=== PATIENT | male | born 1950 | race Caucasian/White ===

== ENCOUNTER 2020-04-02 18:34 | Inpatient (IN) | payer MEDICARE ==
[~2020-04-02] VITALS: Ht 175.3 cm; Wt 77.1 kg
--- NOTE | 2020-04-02 18:42 | NUR ---
BIB FAMILY FROM HOME, C/O PROGRESSIVELY BEING WEAK AND CONFUSED X 2 WEEKS. TO ER BED 9, HOOKED TO BP CUFF AND POX, CHANGED TO HOSP GOWN, WARM BLANKET PROVIDED, PATIENT AAO x 2, BREATHING EVEN AND UNLABORED, AWAITING MD [place].
--- NOTE | 2020-04-02 18:49 | NUR ---
DR GARG AT BEDSIDE FOR EVAL
--- NOTE | 2020-04-02 19:03 | NUR ---
CIGARETTE SELLER AT BEDSIDE FOR XRAY.
[2020-04-02 19:04] LABS: EOSINOPHILS % (AUTO) 0.5 % (0.0-6.0); MEAN CORPUSCULAR HGB CONC 34 g/dl (31.0-36.0); MEAN CORPUSCULAR VOLUME 102 fL (80-96); MONOCYTES # (AUTO) 1.5 /CMM (0.1-1.30); WHITE BLOOD COUNT (AUTO) 12.3 K/uL (4.3-11.0)
--- NOTE | 2020-04-02 19:08 | NUR ---
BUS VAN DRIVER: MOOKIE (SON) [phone]
--- NOTE | 2020-04-02 19:13 | NUR ---
PICKED UP BY FILER METAL PATTERNS VIA [facility] FOR CT SCAN.
--- NOTE | 2020-04-02 19:17 | NUR ---
RETURNED FROM CT BY Pegg'd.
[2020-04-02] MEDS ORDERED: DOXA8TAB79 PO (19:21)
[2020-04-02] MEDS ORDERED: AMLO10TA7 PO (19:21)
[2020-04-02] MEDS ORDERED: PANT20TA17 PO (19:21)
[2020-04-02] MEDS ORDERED: PRAV40TA3 PO (19:21)
[2020-04-02] MEDS ORDERED: LENV1CAP PO (19:21)
--- NOTE | 2020-04-02 19:29 | NUR ---
CALLED FOR COVID SWAB
--- NOTE | 2020-04-02 19:30 | NUR ---
urine collected and sent to lab.
[2020-04-02 19:33] LABS: BASOPHILS # (AUTO) 0.1 /CMM (0.0-0.2); BASOPHILS % (AUTO) 0.9 % (0.0-2.0); HEMATOCRIT 57 % (39-51); LYMPHOCYTES # (AUTO) 1.4 /CMM (0.8-4.8); LYMPHOCYTES % (AUTO) 11.5 % (20.0-44.0); MONOCYTES % (AUTO) 12.4 % (2.0-12.0); NEUTROPHILS # (AUTO) 9.2 /CMM (1.8-8.9); NEUTROPHILS % (AUTO) 74.7 % (43.0-81.0); PLATELET COUNT (AUTO) 153 /CMM (150-450)
[2020-04-02 19:35] LABS: CARBON DIOXIDE 18 mmol/L (21-32); CHLORIDE 97 mmol/L (98-107); CREATININE 2.4 mg/dL (0.6-1.3); GLUCOSE 126 mg/dL (74-106); POTASSIUM 5.6 mmol/L (3.5-5.1); SODIUM SERUM 130 mmol/L (136-145); UREA NITROGEN, BLOOD 49 mg/dL (7-18)
[2020-04-02 19:36] LABS: SERUM AMMONIA 97 umol/L (11-32)
--- NOTE | 2020-04-02 19:46 | NUR ---
COVID SWAB COLLECTED AND SENT TO THE LAB.
[2020-04-02 19:49] LABS: APPEARANCE,URINE CLEAR (CLEAR); BILIRUBIN,URINE MODERATE (NEGATIVE); BLOOD, URINE NEGATIVE Ery/uL (NEGATIVE); COLOR,URINE ORANGE (YELLOW); KETONES,URINE TRACE (NEGATIVE); LEUKOCYTE ESTERASE ,URINE NEGATIVE (NEGATIVE); NITRITE, URINE POSITIVE (NEGATIVE); PH,URINE 5.5 (5.0-8.0); PROTEIN,URINE TRACE mg/dl (NEGATIVE); UGLUCOSE NEGATIVE (NEGATIVE)
[2020-04-02 19:49] LABS: ALANINE AMINOTRANSFERASE 31 U/L (12-78); ALBUMIN 1.7 g/dL (3.4-5.0); ALKALINE PHOSPHATASE 158 U/L (46-116); ASPARTATE AMINOTRANSFERASE 80 U/L (15-37); BILIRUBIN,DIRECT 3.4 mg/dL (0.0-0.2); BILIRUBIN,TOTAL 4.6 mg/dL (0.2-1.0); LIPASE 103 U/L (73-393); TOTAL PROTEIN, SERUM 4.9 g/dL (6.4-8.2)
[2020-04-02 20:07] LABS: HEMOGLOBIN 19.3 g/dL (13.5-17.5)
[2020-04-02 20:22] LABS: B-TYPE NATRIURETIC PEPTIDE 352 PG/ML (0-125)
[2020-04-02 20:23] LABS: BACTERIA,URINE 1+ /HPF (None Seen); HYALINE CASTS, URINE Few /LPF (None Seen); MUCUS,URINE Few /LPF (None Seen); RBC,URINE 0-2 /HPF (0-2); SQUAMOUS EPITHELIAL CELL,UR 0-2 /HPF (None Seen)
[2020-04-02] MEDS ORDERED: LACTULOSE 10 G/15 ML UDC (PYXIS) PO ONE (20:30)
[2020-04-02] MEDS ORDERED: LACTULOSE 10 G/15 ML UDC (PYXIS) ONE (20:45)
[2020-04-02] MEDS ORDERED: CEFTRIAXONE 1GM BAG (ER ONLY) 50 ML IV ONE (20:45)
[2020-04-02 20:59] LABS: BAND % (MANUAL) 3 % (0.0-5.0); LYMPHOCYTES % (MANUAL) 5 % (16-48); MONOCYTES % (MANUAL) 11 % (0-11.0); NEUTROPHILS % (MANUAL) 81 (42-76)
[2020-04-02] MEDS ORDERED: HYDROCODONE/APAP 5/325MG TABLET PO PRN (21:00)
[2020-04-02] MEDS ORDERED: ACETAMINOPHEN 325 MG TABLET PO PRN (21:00)
[2020-04-02] MEDS ORDERED: MAGNESIUM HYDROXIDE 30 ML UDC PO PRN (21:00)
[2020-04-02] MEDS: LACTULOSE 10 G/15 ML UDC (PYXIS) PO SCH (21:00)
[2020-04-02] MEDS ORDERED: CEFTRIAXONE 1GM BAG (ER ONLY) 1 GM/50 ML PIGGYBACK IV ONE (21:00)
[2020-04-02] MEDS ORDERED: Z GUARD REMEDY 2 OZ OINT TP PRN (21:00)
[2020-04-02] MEDS: CEFTRIAXONE 1 G in IV D5W 50 ML IV SCH (21:00)
--- NOTE | 2020-04-02 21:06 | NUR ---
REC'D NEG COVID RESULTS. AWARE
--- NOTE | 2020-04-02 21:08 | NUR ---
PATIENT VOMITED BROWN-LIKE WITH FOOD. MD NOTIFIED. NO ORDERS.
--- NOTE | 2020-04-02 21:15 | NUR ---
BED ASSIGNMENT 307-1
--- NOTE | 2020-04-02 21:29 | NUR ---
PATIENT IS CLEANED AND CHANGED IN TO A FRESH GOWN AND WITH FRESH CLEAN SHEETS.
--- NOTE | 2020-04-02 21:30 | NUR ---
TRIED CALLING FOR REPORT, STAFF STATES NURSE IS NOT AVAILABLE AT THE MOMENT, STATES WILL CALL BACK IN 15 MINUTES.
--- NOTE | 2020-04-02 21:52 | NUR ---
REPORT GIVEN TO TIERA LEE FOR RAMONITA.
[2020-04-02 22:00] VITALS: BP 100/63
[2020-04-02] MEDS ORDERED: ATORVASTATIN 40 MG TABLET PO SCH (22:00)
--- NOTE | 2020-04-02 22:00 | NUR ---
LIQUID COMPOUNDERFRENCH EDGE OPERATOR NOTES RECEIVED FROM ER THIS 70YO MALE,ALERT,ORIENTED X1-2,CONFUSED BUT CALM,HE KNOWS HIS NAME.DX-ALTERED MENTAL STATUS.APPEARS WEAK,CLAIMED HE AMBULATE WITH CANE,WALKER AT HOME.NO HX OF FALL.NO SKIN ISSUES.SALINE LOCK RIGHT AC INTACT AND PATENT. SR 86 ON TELE MONITOR.FALL PRECAUTION OBSERVED,BED ALARM TRIGGERED,BED ON LOWEST POSITION AND LOCKED.CALL LIGHT IN REACH,NEEDS ANTICIPATED.
--- NOTE | 2020-04-02 22:30 | NUR ---
ENROBING MACHINE FEEDER NOTES DR SANDOVAL AT BEDSIDE
[2020-04-02 22:40] VITALS: BP 100/63
[2020-04-02] MEDS: IV NS 0.9% 1,000 ML IV PRN (22:52)
--- NOTE | 2020-04-02 22:52 | NUR ---
CHUCK SPLITTER NOTES STARTED ON IVF NS AT 75ML/HR RATE ORDERED.
[2020-04-02] MEDS: ENOXAPARIN SODIUM 30 MG/0.3 ML DISP.SYRIN SQ SCH (22:53)
--- NOTE | 2020-04-02 22:53 | NUR ---
QUALITY ENGINEER MEDICAL DEVICE NOTES STARTED ON LOVENOX 30MG,GIVEN SQ ON RIGHT UPPER QUADRANT ORDERED FOR DVT PROPHYLAXIS
--- NOTE | 2020-04-02 22:54 | NUR ---
TECHNICAL MANAGER CHEMICAL PLANT NOTES GIVEN LIPITOR 40MG PO ORDERED.
[2020-04-03] VITALS: BP 96/50
[2020-04-03 00:22] VITALS: BP 96/50
[2020-04-03] MEDS: LACTULOSE 10 G/15 ML UDC (PYXIS) PO SCH ×6 (01:19→22:17)
[2020-04-03] MEDS: ONDANSETRON HCL/PF 4 MG/2 ML VIAL IVP PRN ×4 (01:54→21:36)
--- NOTE | 2020-04-03 01:54 | NUR ---
SHINGLE CUTTER NOTES VOMITED AFTER GIVING LACTULOSE PO,MEDICATED WITH ZOFRAN 4MG IV ORDERED.
[2020-04-03 03:14] LABS: BASOPHILS % (AUTO) 0.4 % (0.0-2.0); EOSINOPHILS % (AUTO) 0.1 % (0.0-6.0); HEMATOCRIT 56 % (39-51); HEMOGLOBIN 18.9 g/dL (13.5-17.5); LYMPHOCYTES # (AUTO) 0.8 /CMM (0.8-4.8); LYMPHOCYTES % (AUTO) 6.8 % (20.0-44.0); MEAN CORPUSCULAR HGB CONC 34 g/dl (31.0-36.0); MEAN CORPUSCULAR VOLUME 100 fL (80-96); MONOCYTES # (AUTO) 1.2 /CMM (0.1-1.30); MONOCYTES % (AUTO) 10.5 % (2.0-12.0); NEUTROPHILS # (AUTO) 9.3 /CMM (1.8-8.9); NEUTROPHILS % (AUTO) 82.2 % (43.0-81.0); PLATELET COUNT (AUTO) 137 /CMM (150-450); WHITE BLOOD COUNT (AUTO) 11.4 K/uL (4.3-11.0)
[2020-04-03 03:53] LABS: ALANINE AMINOTRANSFERASE 27 U/L (12-78); ALBUMIN 1.6 g/dL (3.4-5.0); ALKALINE PHOSPHATASE 152 U/L (46-116); ASPARTATE AMINOTRANSFERASE 70 U/L (15-37); BILIRUBIN,TOTAL 4.4 mg/dL (0.2-1.0); CARBON DIOXIDE 20 mmol/L (21-32); CHLORIDE 98 mmol/L (98-107); CREATININE 2.6 mg/dL (0.6-1.3); GLUCOSE 136 mg/dL (74-106); MAGNESIUM 3.1 mg/dL (1.8-2.4); PHOSPHORUS 5.2 mg/dL (2.5-4.9); POTASSIUM 5.6 mmol/L (3.5-5.1); SODIUM SERUM 131 mmol/L (136-145); TOTAL PROTEIN, SERUM 4.6 g/dL (6.4-8.2); UREA NITROGEN, BLOOD 55 mg/dL (7-18)
[2020-04-03 04:00] VITALS: BP 107/60
[2020-04-03 04:02] LABS: CHOLESTEROL 94 mg/dL (<200); HDL CHOLESTEROL 11 mg/dL (40-60); LDL 77 mg/dL (0-99); THYROID STIMULATING HORMONE 18.726 uIU/mL (0.358-3.74); TRIGLYCERIDES 118 mg/dL (30-150)
--- NOTE | 2020-04-03 05:00 | NUR ---
SHIRRER NOTES OFFERED LACTULOSE 20GM PO THIS TIME,PATIENT REFUSED.HE'S ON BEDSIDE COMMODE DOING #2.
--- NOTE | 2020-04-03 06:31 | NUR ---
MOBILE DESIGNER NOTES ABLE TO GET OUT OF BED WITH ASSIST TO BEDSIDE COMMODE.HAD LARGE BM,STILL A/O X1-2,SPEAK SO SOFT AND NOT TOO LOUD,ABLE TO VERBALIZED NEEDS.NO FALL,NO INJURY,ON CLEAR LIQUID DIET,CALL LIGHT IN REACH,NEEDS ANTICIPATED.WILL ENDORSE TO DAY NURSE FOR RAMONITA.
--- NOTE | 2020-04-03 07:35 | NUR ---
TELE/RN NOTE THE PATIENT IS RECEIVED IN BED. THE PATIENT IS ALERT AND ORIENTED X1. ABLE TO MAKE NEEDS KNOWN VERBALLY. THE PATIENT DENIES PAIN. IN ROOM AIR AND DENIES SOB. RESPIRATION REGULAR AND UNLABORED. DENIES SOB. LAC G 18 PATENT AND SALINE LOCKED DUE TO PATIENT REFUSING IV FLUIDS. PATIENT IS ON CLEAR LIQUID DIET. BED LOW AND LOCKED. SIDE RAILS UP X3. CALL LIGHT WITHIN REACH. WILL CONTINUE TO MONITOR.
[2020-04-03 08:00] VITALS: BP 104/55
[2020-04-03] MEDS: PANTOPRAZOLE 40 MG TABLET.DR PO SCH (09:30)
[2020-04-03] MEDS ORDERED: SODIUM POLYSTYRENE SULFONATE 15 G/60 ML BOTTLE PO ONE (10:30)
[2020-04-03] MEDS ORDERED: FUROSEMIDE 100 MG/10 ML VIAL IV ONE (10:30)
--- NOTE | 2020-04-03 11:13 | NUR ---
TELE/RN NOTE THE PATIENT HAS COMPLIANT OF NAUSEA. ZOFRAN 4 MG IV PUSH GIVEN ORDERED. WILL CONTINUE TO MONITOR.
--- NOTE | 2020-04-03 11:20 | NUR ---
TELE/RN NOTE THE PATIENT COMPLAINS OF NAUSEA. ZOFRAN 4 MG IV PUSH GIVEN. WILL CONTINUE TO MONITOR. Addendum: 04/03/20 at 1534 by DAPHNE VENTURA RN RN NOTE WRONG NOTE
--- NOTE | 2020-04-03 11:21 | NUR ---
TELE/RN NOTE WAITING FOR PHARMACY TO DELIVER KAYEXELATE DYE AT 1030. FOLLOW UP CALL IS MADE. WILL CONTINUE TO FOLLOW UP WITH PHARMACY UNTIL THE MED IS DELIVERED.
--- NOTE | 2020-04-03 11:43 | NUR ---
TELE/RN NOTE THE PATIENT DENIES HAVING NAUSEA.
[2020-04-03 14:20] LABS: CALCIUM, SERUM 11.1 mg/dL (8.5-10.1); CARBON DIOXIDE 19 mmol/L (21-32); CHLORIDE 99 mmol/L (98-107); CREATININE 2.8 mg/dL (0.6-1.3); GLUCOSE 142 mg/dL (74-106); POTASSIUM 5.5 mmol/L (3.5-5.1); SODIUM SERUM 132 mmol/L (136-145); UREA NITROGEN, BLOOD 64 mg/dL (7-18)
--- NOTE | 2020-04-03 15:40 | NUR ---
RN NOTE THE PATIENT COMPLAINS OF NAUSEA. ZOFRAN 4 MG IV PUSH GIVEN. WILL CONTINUE TO MONITOR.
[2020-04-03 16:00] VITALS: BP 109/65
--- NOTE | 2020-04-03 16:10 | NUR ---
RN NOTE THE PATIENT DENIES NAUSEA.
--- NOTE | 2020-04-03 17:21 | NUR ---
RN NOTE THE PATIENT TAKEN TO RADIOLOGY DEPARTMENT FOR STAT CT ABDOMEN PELVIS WO. THE PATIENT LEFT THE FLOOR IN STABLE CONDITION.
--- NOTE | 2020-04-03 17:45 | NUR ---
RN NOTE THE PATIENT IS BACK FROM RADIOLOGY DEPARTMENT. THE PATIENT IN STABLE CONDITION.
--- NOTE | 2020-04-03 18:34 | NUR ---
TELE/RN NOTE THE PATIENT IS ALERT AND ORIENTED X2. DENIES PAIN. IN ROOM AIR AND OXYGEN SATURATION LEVEL IS AT 95%. DENIES SOB. RESPIRATION REGULAR AND UNLABORED. AC G 18 PATENT AND NS INFUSING AT 75ML/HR AND NO S/S INFILTRATION NOTED. THE PATIET HAS BEEN NON-COMPLIANT WITH IV FLUDIS DESPITE EXPLAINING RISKS AND BENEFITS. DNP STEVE IS MADE AWARE OF POTASSIUM LEVEL OF 5.5 AND PER BANKRUPTCY JUDGE NO NEW ORDERS. BED LOW AND LOCKED. SIDE RAILS UP X3. CALL LIGHT WITHIN REACH. WILL ENDORSE TO ALTERATION WORKER.
--- NOTE | 2020-04-03 18:37 | NUR ---
TELE/RN NOTE DNP STEVE IS MADE AWARE OF VT ABDOMEN PELVIS WO RESULT. WAITING FOR ORDERS. ALLIANCE CONSULTANT IS ENDORSED TO FOLLOW UP.
[2020-04-03 20:00] VITALS: BP 102/65
--- NOTE | 2020-04-03 20:00 | NUR ---
nurse extern: received rpeort from selene. pt a/o x2, more responsive, alert, able to make needs known. assisted in drinking water from cup. pt on lactulose had total of 8 loose bm per day rn report. iv access patent and flushing well, secure new line as a.c access been beeping everything arm is bend. tele monitoring sinus rhythm. safety precautions for fall initiated, call light in reach, will continue monitoring pt.
--- NOTE | 2020-04-03 20:03 | NUR ---
rn notes: us kidneys done at bed side.
[2020-04-03] MEDS: ENOXAPARIN SODIUM 30 MG/0.3 ML DISP.SYRIN SQ SCH (21:36)
[2020-04-03] MEDS: CEFTRIAXONE 1 G in IV D5W 50 ML IV SCH (21:38)
--- NOTE | 2020-04-03 21:40 | NUR ---
PRN ZOFRAN: PRN ZOFRAN ADMINISTERED PRIOR TO ADMINISTERING PO MEDICATION. PT ON LACTULOSE Q4HRS
--- NOTE | 2020-04-03 21:48 | NUR ---
RN NOTES: BLOOD G;UCOSE CHECK PERFORMED AND RESULT IS 142.
[2020-04-04] VITALS (7 sets, daily range): BP systolic 95–113; BP diastolic 53–66
--- NOTE | 2020-04-04 01:20 | NUR ---
rn notes: assisted pt in taking his lactulose, offered jell o pt refused, able to drink the lactulose with help of syringe.
[2020-04-04] MEDS: LACTULOSE 10 G/15 ML UDC (PYXIS) PO SCH ×6 (01:23→21:25)
[2020-04-04] MEDS: IV NS 0.9% 1,000 ML IV PRN ×2 (02:58→17:20)
--- NOTE | 2020-04-04 04:58 | NUR ---
rn notes: notified epic md hospitalist unable to obtain ua spcimen as urine always mixed with stool, pt on lactulose q4hrs. per okay to do straight cath for collection. order read back verified and carried out.
--- NOTE | 2020-04-04 05:02 | NUR ---
rn notes/ua specimen: urine collected via straight cath, specimen sent to lab
[2020-04-04 06:33] LABS: BASOPHILS % (AUTO) 0.1 % (0.0-2.0); EOSINOPHILS % (AUTO) 0.1 % (0.0-6.0); HEMATOCRIT 53 % (39-51); LYMPHOCYTES # (AUTO) 0.8 /CMM (0.8-4.8); LYMPHOCYTES % (AUTO) 5.8 % (20.0-44.0); MEAN CORPUSCULAR HGB CONC 34 g/dl (31.0-36.0); MEAN CORPUSCULAR VOLUME 101 fL (80-96); MONOCYTES # (AUTO) 1.9 /CMM (0.1-1.30); MONOCYTES % (AUTO) 13.8 % (2.0-12.0); NEUTROPHILS # (AUTO) 11.2 /CMM (1.8-8.9); NEUTROPHILS % (AUTO) 80.2 % (43.0-81.0); PLATELET COUNT (AUTO) 165 /CMM (150-450); RED BLOOD CELL COUNT(AUTO) 5.27 MIL/uL (4.5-6.0)
--- NOTE | 2020-04-04 06:54 | NUR ---
END OF SHIFT REPORT: PT REMAINS AWAKE, A/O X2, ABLE TO MAKE NEEDS KNOWN. HAD TOTAL OF 6 LOOSE BM. IV ACCESS REMAINS PATENT AND FLUSHING WELL, INFUSING WITH NS AT 75ML/HR, NO S/S OF IV INFILTRATION NOTED. . REMAINS ON ASPIRATION PRECAUTION. PT EVAL PENDING. SON MOOKIE WOULD LIKE TO SPEAK WITH MD IN AM. VS REMAINS STABLE, NEEDS ATTENDED. SAFETY PRECAUTIONS FOR FALL REMAINS ENGAGED, CALL LIGHT IN REACH. WILL ENDORSE TO DAY RN FOR CONTINUITY OF CARE.
--- NOTE | 2020-04-04 07:20 | NUR ---
MS RN NOTES PATIENT IN BED ALERT ORIENTED X 2 . NO ACUTE DISTRESS NOTED. BREATHING UNLABORED. NO SOB NOTED. IV ACCESS PATENT AND INTACT, NO REDNESS, NO BLEEDING, NO SWELLING NOTED. SAFETY MEASURES IN PLACE. WILL CONTINUE TO MONITOR ACCORDINGLY.
[2020-04-04 07:23] LABS: APPEARANCE,URINE SL CLOUDY (CLEAR); BILIRUBIN,URINE MODERATE (NEGATIVE); BLOOD, URINE TRACE Ery/uL (NEGATIVE); COLOR,URINE AMBER (YELLOW); KETONES,URINE TRACE (NEGATIVE); LEUKOCYTE ESTERASE ,URINE NEGATIVE (NEGATIVE); NITRITE, URINE POSITIVE (NEGATIVE); PH,URINE 5.5 (5.0-8.0); PROTEIN,URINE NEGATIVE (NEGATIVE); UGLUCOSE NEGATIVE (NEGATIVE)
[2020-04-04 07:26] LABS: ALANINE AMINOTRANSFERASE 31 U/L (12-78); ALBUMIN 1.5 g/dL (3.4-5.0); ALKALINE PHOSPHATASE 139 U/L (46-116); ASPARTATE AMINOTRANSFERASE 71 U/L (15-37); BILIRUBIN,TOTAL 3.9 mg/dL (0.2-1.0); CALCIUM, SERUM 10.8 mg/dL (8.5-10.1); CARBON DIOXIDE 17 mmol/L (21-32); CHLORIDE 101 mmol/L (98-107); CREATININE 3.2 mg/dL (0.6-1.3); GLUCOSE 134 mg/dL (74-106); MAGNESIUM 3.4 mg/dL (1.8-2.4); PHOSPHORUS 5.3 mg/dL (2.5-4.9); POTASSIUM 4.5 mmol/L (3.5-5.1); SODIUM SERUM 135 mmol/L (136-145); TOTAL PROTEIN, SERUM 4.3 g/dL (6.4-8.2); UREA NITROGEN, BLOOD 70 mg/dL (7-18)
[2020-04-04 07:39] LABS: CREATINE KINASE, TOTAL 180 U/L (39-308)
[2020-04-04 08:05] LABS: CREATININE, URINE 169.3 MG/DL (30.0-125.0); URINE SODIUM, RANDOM < 5 mmol/l (40-220); URINE TOTAL PROTEIN 23.6 mg/dL (0-11.9)
[2020-04-04 08:19] LABS: BACTERIA,URINE Rare /HPF (None Seen); HYALINE CASTS, URINE Few /LPF (None Seen); SQUAMOUS EPITHELIAL CELL,UR Rare /HPF (None Seen); WBC,URINE 0-2 /HPF (0-3)
[2020-04-04] MEDS: PANTOPRAZOLE 40 MG TABLET.DR PO SCH (08:50)
[2020-04-04 09:07] LABS: LYMPHOCYTES % (MANUAL) 3 % (16-48); MONOCYTES % (MANUAL) 12 % (0-11.0); NEUTROPHILS % (MANUAL) 85 (42-76)
[2020-04-04] MEDS: PROPRANOLOL HCL 10 MG TABLET PO SCH ×2 (09:56→21:30)
--- NOTE | 2020-04-04 10:39 | NUR ---
MS RN NOTES TROPONIN RESULTED CRITICAL 0.[address] LEIGHA WILSON, NO NEW ORDERS MADE AT THIS TIME.
--- NOTE | 2020-04-04 18:54 | NUR ---
MS RN NOTES PATIENT IN BED ALERT ORIENTED X 2 . NO ACUTE DISTRESS NOTED. BREATHING UNLABORED. NO SOB NOTED. IV ACCESS PATENT AND INTACT, NO REDNESS, NO BLEEDING, NO SWELLING NOTED. NEEDS ATTENDED AND ANTICIPATED. SAFETY MEASURES IN PLACE. CALL LIGHT WITHIN REACH WILL ENDORSE TO NIGHT NURSE FOR CONTINUITY OF CARE .
--- NOTE | 2020-04-04 20:30 | NUR ---
turn sewer: received report from day krystal man. pt a/o x2, able to make needs known. on lactulose po q4hrs. iv access patent and flushing well, infusing with ns at 75ml/hr. safety precautions for fall initiated, call light in reach, will continue monitoring pt.
--- NOTE | 2020-04-04 21:09 | NUR ---
RN NOTES: RECHECK PT'S TEMP, AXILLARY IS 96.1, RECTALLY IS 95.3. COULDN'T GET ANY READING FOR ORAL TEMPERATURE. BAG LOADER MADE AWARE. CONTACTED [facility] HOSPITALIST RECOMMENDATION FOR ALEXEY HAY.
--- NOTE | 2020-04-04 21:12 | NUR ---
RN NOTES: RECEIVED CALL BACK FROM CHERRY NICK TO PUT ON ALEXEY HUGGER. ORDER READ BACK, VERIFIED AND CARRIED OUT. CALLED ER FOR ALEXEY HUGGER, STATED THEY DON'T HAVE IT IT WAS SENT LAST NIGHT TO ICU FOR ONE PT. THERE SHOULD BE 2 FOR THE HOSPITAL. CALLED ICU, FOUND OUT THE OTHER ALEXEY HUGGER ISNT WORKING, CURRENTLY IN THE DIRTY UTILITY AREA.
[2020-04-04] MEDS: CEFTRIAXONE 1 G in IV D5W 50 ML IV SCH (21:25)
[2020-04-04] MEDS: ENOXAPARIN SODIUM 30 MG/0.3 ML DISP.SYRIN SQ SCH (21:29)
--- NOTE | 2020-04-04 21:30 | NUR ---
RN NOTES: RELAYED TO [facility] HOSPITALIST REGARDING PT'S BP HR, PER OKANDI TO ADMINISTER INDERAL WITH THIS BP AND HR. ORDER READ BACK VERIFIED AND CARRIED OUT.
--- NOTE | 2020-04-04 21:57 | NUR ---
RN NOTES: NOTIFIED [facility] MD HOSPITALIST ABOUT THE PROBLEM WITH ALEXEY HAY , NOT AVAILABLE, PER MD CONTINUE MONITORING TEMPERATURE. INFORMED MD, WARM BATH PROVIDED AND WARM BLANKET PROVIDED.
--- NOTE | 2020-04-04 22:33 | NUR ---
RN NOTES: NOTIFIED [facility] MD HOSPITALIST REGARDING LATEST TEMP OF PT, PER MD THAT'S OKAY CONTINUE MONITORING.
--- NOTE | 2020-04-04 23:31 | NUR ---
rn notes: assisted in feeding pt, placed on high fowlers/upright position. pt able to eat 120 ml of orange jell o, a box/120 ml of cranberry juice and a cup of water 120 ml. no aspiration noted. kept pt on high mercedes for 20mins after eating.
[2020-04-05] VITALS (9 sets, daily range): BP systolic 81–110; BP diastolic 43–88
--- NOTE | 2020-04-05 | NUR ---
rn notes: pt warm to touch, awake, a/o x2, responsive and communicative. temp monitoring continued. warm blanket provided, warm bath provided.
[2020-04-05] MEDS: LACTULOSE 10 G/15 ML UDC (PYXIS) PO SCH ×6 (01:01→21:51)
[2020-04-05] MEDS: IV NS 0.9% 1,000 ML IV PRN (05:32)
--- NOTE | 2020-04-05 06:43 | NUR ---
End of shift report: Pt more communicative, a/o x2, able to drink water on his own, able to turn and reposition by himself, follows command, able to answer few simple question. Pt had total of 4 loose bm, on lactulose q4hrs. iv access on left wrist patent and flushing well, infusing with ns at 75ml/hr. latest temp 96.8 axillary and 96.8 rectal, md aware. PLAN OF CARE: Cont iv hydration, lactulose, serial labs, awaiting tumor markers result and ua cx result. Vs remains stable, needs attended. Safety precautions for fall remains engaged, call light in reach, will endorse to day rn for continuity of care.
[2020-04-05 06:58] LABS: BASOPHILS % (AUTO) 0.1 % (0.0-2.0); EOSINOPHILS % (AUTO) 0.1 % (0.0-6.0); HEMATOCRIT 53 % (39-51); HEMOGLOBIN 17.9 g/dL (13.5-17.5); LYMPHOCYTES # (AUTO) 0.7 /CMM (0.8-4.8); LYMPHOCYTES % (AUTO) 4.5 % (20.0-44.0); MEAN CORPUSCULAR HGB CONC 34 g/dl (31.0-36.0); MEAN CORPUSCULAR VOLUME 102 fL (80-96); MONOCYTES # (AUTO) 2.4 /CMM (0.1-1.30); MONOCYTES % (AUTO) 16.1 % (2.0-12.0); NEUTROPHILS # (AUTO) 11.7 /CMM (1.8-8.9); NEUTROPHILS % (AUTO) 79.2 % (43.0-81.0); PLATELET COUNT (AUTO) 163 /CMM (150-450); RED BLOOD CELL COUNT(AUTO) 5.19 MIL/uL (4.5-6.0); WHITE BLOOD COUNT (AUTO) 14.8 K/uL (4.3-11.0)
--- NOTE | 2020-04-05 07:40 | NUR ---
MS RN NOTES RECEIVED PT IN BED, ASLEEP, EASILY AROUSED, A/OX2. PT TOLERATING RA, WITH NO ACUTE RESPIRATORY DISTRESS NOTED. PT DENIES ANY PAIN OR DISCOMFORT AT THIS TIME. PT DENIES ANY CONCERNS OR QUESTIONS WELL AT THIS MOMENT. IVF NS AT 75ML/HR TO LEFT WRIST G22, INTACT AND FLUID INFUSING WELL. PIV TO RAC G18, FLUSHED WITH NS, INTACT AND OPERATIONAL. PER WELDER PIPE MAKING NURSE, PT HAS ORDER OF BEAR HUGGER, AWAITING FOR EQUIPMENT TO BE AVAILABLE FOR THE PT. PT KEPT COMFORTABLE. CALL LIGHT KEPT WITHIN REACH. PT'S BED IN LOWEST, LOCKED POSITION WITH SRX3. WILL CONTINUE PLAN OF CARE.
[2020-04-05 07:47] LABS: CALCIUM, SERUM 10.9 mg/dL (8.5-10.1); CARBON DIOXIDE 17 mmol/L (21-32); CHLORIDE 103 mmol/L (98-107); CREATININE 3.7 mg/dL (0.6-1.3); GLUCOSE 113 mg/dL (74-106); MAGNESIUM 3.4 mg/dL (1.8-2.4); PHOSPHORUS 6.6 mg/dL (2.5-4.9); POTASSIUM 4.6 mmol/L (3.5-5.1); SODIUM SERUM 137 mmol/L (136-145)
[2020-04-05 08:06] LABS: PTH, INTACT 13 pg/mL (15-65)
[2020-04-05 08:20] LABS: UREA NITROGEN, BLOOD 80 mg/dL (7-18)
[2020-04-05] MEDS: PROPRANOLOL HCL 10 MG TABLET PO SCH ×2 (08:53→21:00)
[2020-04-05] MEDS: PANTOPRAZOLE 40 MG TABLET.DR PO SCH (08:53)
[2020-04-05 09:42] LABS: D-DIMER 5.3 mg/L(FEU (0.17-0.50)
--- NOTE | 2020-04-05 11:52 | NUR ---
MS RN NOTES PT PULLED OUT RIGHT AV PIV AND LEFT WRIST PIV.
--- NOTE | 2020-04-05 12:03 | NUR ---
MS RN NOTES BP IS LOW 85/49, HR 87, T 97.3. BUN 80, CREA 3.7. PT ON IVF NS, NOTIFIED HOSPITALIST/TS, AWAITING FOR ORDERS.
[2020-04-05] MEDS ORDERED: IV NS 0.9% 500 ML IV ONE ×2 (12:30→14:00)
--- NOTE | 2020-04-05 12:40 | NUR ---
MS RN NOTES RECEIVED ORDER TO GIVE NS 500ML X1 IV BOLUS, STARTED AND INFUSING.
[2020-04-05] MEDS: ONDANSETRON HCL/PF 4 MG/2 ML VIAL IVP PRN (12:48)
--- NOTE | 2020-04-05 12:50 | NUR ---
MS RN NOTES PT REPORTED FEELING NAUSEATED, ZOFRAN IVP GIVEN ORDERED.
--- NOTE | 2020-04-05 13:15 | NUR ---
MS RN NOTES PT ABLE TO TALK TO THE SON/DOMINIQUE ON THE PHONE AT BEDSIDE. WILL CONTINUE TO MONITOR.
--- NOTE | 2020-04-05 13:21 | NUR ---
MS RN NOTES IV NS 500ML BOLUS JUST FINISHED, BP AT THIS TIME 81/51, WILL RECHECK IN COUPLE OF MINUTES.
--- NOTE | 2020-04-05 13:50 | NUR ---
MS RN NOTES HOSPITALIST/TS MADE AWARE OF CURRENT BP AND ORDERED ANOTHER NS 500ML BOLUS. CHARGE NURSE AWARE. WILL CONTINUE TO MONITOR.
[2020-04-05 14:00] LABS: LYMPHOCYTES % (MANUAL) 3 % (16-48); MONOCYTES % (MANUAL) 11 % (0-11.0); NEUTROPHILS % (MANUAL) 86 (42-76)
--- NOTE | 2020-04-05 14:57 | NUR ---
MS RN NOTES NS 500ML BOLUS JUST FINISHED, WILL MONITOR BP.
[2020-04-05] MEDS ORDERED: ALBUMIN 25% 12.5 GM in PREMIX 1 EA IV PRN (15:00)
[2020-04-05] MEDS: MIDODRINE HCL (5MG) 5 MG TABLET PO SCH ×2 (15:05→23:26)
[2020-04-05] MEDS: OCTREOTIDE 50 MCG/ML AMPUL SQ SCH ×2 (15:35→22:35)
[2020-04-05] MEDS: RIFAXIMIN 550 MG TABLET PO SCH (16:52)
[2020-04-05] MEDS: ALBUMIN 25% 25 GM in PREMIX 1 EA IV SCH ×2 (17:30→22:34)
--- NOTE | 2020-04-05 19:35 | NUR ---
MS RN NOTES PT REMAINS IN BED, ASLEEP, EASILY AROUSED, A/OX2. PT TOLERATING RA, WITH NO ACUTE RESPIRATORY DISTRESS NOTED. PT DENIES ANY PAIN OR DISCOMFORT AT THIS TIME. PT DENIES ANY CONCERNS OR QUESTIONS WELL AT THIS MOMENT. IVF NS AT 75ML/HR TO RIGHT WRIST G22, INTACT AND FLUID INFUSING WELL. ALL NEEDS AND CARE ATTENDED. PT KEPT COMFORTABLE. CALL LIGHT KEPT WITHIN REACH. PT'S BED IN LOWEST, LOCKED POSITION WITH SRX3. ENDORSED TO INCOMING NIGHT NURSE FOR RAMONITA.
--- NOTE | 2020-04-05 19:41 | NUR ---
MS RN OPENING NOTE: Patient in bed sleeping comfortably. Patient is breathing well on room air, breathing even and unlabored. No SOB or respiratory distress noted. Noted IV access on right wrist 22 gauge, flushes well, patent, dressing is dry and intact, no redness or infiltration. Safety precaution is in place, bed is in the lowest level, bed is locked, alarm is on, side rails x2 are up, and call light is within reach. Will continue to monitor.
[2020-04-05] MEDS: ENOXAPARIN SODIUM 30 MG/0.3 ML DISP.SYRIN SQ SCH (21:53)
--- NOTE | 2020-04-05 21:55 | NUR ---
MS RN NOTE: Patient BP 95/50, HR 79, held Inderal to prevent hypotensive reaction. Will continue to monitor.
--- NOTE | 2020-04-05 22:10 | NUR ---
MS RN NOTE: Recephin, Sandostatin, and Albumin is not available at this time.
[2020-04-05] MEDS: CEFTRIAXONE 1 G in IV D5W 50 ML IV SCH (22:33)
[2020-04-06] VITALS: BP 91/55
[2020-04-06] MEDS: LACTULOSE 10 G/15 ML UDC (PYXIS) PO SCH ×6 (00:53→21:09)
[2020-04-06 04:00] VITALS: BP 97/48
[2020-04-06] MEDS: ALBUMIN 25% 25 GM in PREMIX 1 EA IV SCH ×2 (04:09→09:39)
--- NOTE | 2020-04-06 06:30 | NUR ---
MS RN CLOSING NOTE: Patient in bed awake and alert. Able to make needs known. Patient is in no respiratory distress and no SOB noted. Safety precaution is in place, bed is in the lowest level, bed is locked, alarm is on, side rails x2 are up, and call light is within reach. Will endorse to next shift.
--- NOTE | 2020-04-06 07:35 | NUR ---
MS RN NOTES RECEIVED PT IN BED, AWAKE, A/OX2. PT TOLERATING RA, WITH NO ACUTE RESPIRATORY DISTRESS NOTED. PT DENIES ANY PAIN OR DISCOMFORT AT THIS TIME. PT DENIES ANY CONCERNS OR QUESTIONS WELL AT THIS MOMENT. IVF NS AT 75ML/HR TO RIGHT WRIST G22, INTACT AND FLUID INFUSING WELL. PT KEPT COMFORTABLE. CALL LIGHT KEPT WITHIN REACH. PT'S BED IN LOWEST, LOCKED POSITION WITH SRX3. WILL CONTINUE PLAN OF CARE.
[2020-04-06 07:36] LABS: BASOPHILS % (AUTO) 0.1 % (0.0-2.0); EOSINOPHILS % (AUTO) 0.3 % (0.0-6.0); HEMATOCRIT 47 % (39-51); HEMOGLOBIN 15.5 g/dL (13.5-17.5); LYMPHOCYTES # (AUTO) 0.9 /CMM (0.8-4.8); LYMPHOCYTES % (AUTO) 7.7 % (20.0-44.0); MEAN CORPUSCULAR HGB CONC 33 g/dl (31.0-36.0); MEAN CORPUSCULAR VOLUME 103 fL (80-96); MONOCYTES # (AUTO) 2.2 /CMM (0.1-1.30); MONOCYTES % (AUTO) 19.6 % (2.0-12.0); NEUTROPHILS # (AUTO) 8.2 /CMM (1.8-8.9); NEUTROPHILS % (AUTO) 72.3 % (43.0-81.0); PLATELET COUNT (AUTO) 133 /CMM (150-450); RED BLOOD CELL COUNT(AUTO) 4.53 MIL/uL (4.5-6.0); WHITE BLOOD COUNT (AUTO) 11.4 K/uL (4.3-11.0)
[2020-04-06 07:50] LABS: ALANINE AMINOTRANSFERASE 33 U/L (12-78); ALBUMIN 2.4 g/dL (3.4-5.0); ALKALINE PHOSPHATASE 113 U/L (46-116); ASPARTATE AMINOTRANSFERASE 54 U/L (15-37); BILIRUBIN,TOTAL 3.8 mg/dL (0.2-1.0); CALCIUM, SERUM 9.9 mg/dL (8.5-10.1); CARBON DIOXIDE 15 mmol/L (21-32); CHLORIDE 101 mmol/L (98-107); CREATININE 5.3 mg/dL (0.6-1.3); GLUCOSE 111 mg/dL (74-106); POTASSIUM 4.4 mmol/L (3.5-5.1); SODIUM SERUM 136 mmol/L (136-145); TOTAL PROTEIN, SERUM 4.6 g/dL (6.4-8.2)
[2020-04-06 07:55] LABS: UREA NITROGEN, BLOOD 88 mg/dL (7-18)
[2020-04-06] MEDS: RIFAXIMIN 550 MG TABLET PO SCH ×2 (08:36→16:36)
[2020-04-06] MEDS: PANTOPRAZOLE 40 MG TABLET.DR PO SCH (08:36)
[2020-04-06] MEDS: PROPRANOLOL HCL 10 MG TABLET PO SCH ×2 (08:37→21:09)
[2020-04-06] MEDS: OCTREOTIDE 50 MCG/ML AMPUL SQ SCH ×3 (08:38→16:53)
[2020-04-06] MEDS: MIDODRINE HCL (5MG) 5 MG TABLET PO SCH ×3 (08:38→16:37)
[2020-04-06 08:41] VITALS: BP 101/43
[2020-04-06 09:24] LABS: LYMPHOCYTES % (MANUAL) 2 % (16-48); MONOCYTES % (MANUAL) 26 % (0-11.0); NEUTROPHILS % (MANUAL) 72 (42-76)
--- NOTE | 2020-04-06 09:39 | NUR ---
MS RN NOTES TOP BOTTOM ATTACHING MACHINE OPERATOR/JIGNESH/NEPHRO IN THE UNIT, AWARE OF BUN AND CREA RESULT. HE STATED HE'LL RELAY TO DR. ALEXANDRE, BUT ALSO ADDED MIGHT PLAN FOR HIM TO HAVE DIALYSIS. CHARGE NURSE/CAMACHO MADE AWARE WELL.
--- NOTE | 2020-04-06 10:25 | NUR ---
MS RN NOTES PT SEEN AND EVALUATED BY DR. ALEXANDRE AT BEDSIDE. PT MADE AWARE ABOUT PLAN OF DIALYSIS, PT ALSO STATED HE CAN MAKE DECISION FOR HIMSELF. BRANCH LOGISTICS SUPERVISOR/JIGNESH AT BEDSIDE WELL. PER DR. GARCÍA HE'LL COORDINATE WITH HOSPITALIST/TS WITH THE PLAN FOR HD ACCESS. NEW ORDERS PLACED BY BRANCH LOGISTICS SUPERVISOR/JIGNESH AND CARRIED OUT. WILL CONTINUE PLAN OF CARE.
[2020-04-06] MEDS ORDERED: ALBUMIN 25% 25 GM in PREMIX 1 EA IV SCH (14:00)
[2020-04-06 15:38] LABS: *SPE A/G RATIO 0.8 (0.7-1.7); *SPE ALBUMIN 1.8 g/dL (2.9-4.4); *SPE ALPHA-1-GLOBULIN 0.2 g/dL (0.0-0.4); *SPE ALPHA-2-GLOBULIN 0.4 g/dL (0.4-1.0); *SPE BETA GLOBULIN 0.6 g/dL (0.7-1.3); *SPE GLOBULIN, TOTAL 2.2 g/dL (2.2-3.9); *SPE M-SPIKE Not Observed g/dL (Not Observed)
[2020-04-06 16:18] VITALS: BP 96/61
--- NOTE | 2020-04-06 18:46 | NUR ---
MS RN NOTES RPT REMAINS IN BED, AWAKE, A/OX2. PT ON SUPPLEMENTARY OXYGEN 2LPM VIA NC, WITH NO ACUTE RESPIRATORY DISTRESS NOTED. PT DENIES ANY PAIN OR DISCOMFORT AT THIS TIME. NS AT TKO TO RIGHT WRIST G22, INTACT AND FLUID INFUSING WELL. ALL NEEDS AND CARE ATTENDED. PT KEPT COMFORTABLE. CALL LIGHT KEPT WITHIN REACH. PT'S BED IN LOWEST, LOCKED POSITION WITH SRX3. WILL ENDORSE TO INCOMING NIGHT NURSE FOR RAMONITA.
--- NOTE | 2020-04-06 19:30 | NUR ---
MS/RN OPENING NOTES RECEIVED PATIENT IN BED RESTING. PATIENT IS ALERT AND ORIENTED X 2. PATIENT IS ON 2L OXYGEN PRN TOLERATING WELL. NO SIGNS OF SOB OR RESPIRATORY DISTRESS NOTED. PATIENT HAS IV ACCESS ON RIGHT WRIST #22G INTACT NS TKO. SAFETY MEASURES ARE IN PLACE BED IS LOCKED AND PLACED IN THE LOWEST POSITION, SIDE RAILS UP X 3. CALL LIGHT IS WITHIN REACH. WILL CONTINUE TO MONITOR THROUGH OUT SHIFT.
[2020-04-06 20:00] VITALS: BP 119/52
[2020-04-06] MEDS: CEFTRIAXONE 1 G in IV D5W 50 ML IV SCH (21:08)
[2020-04-06 21:09] VITALS: BP 119/52
[2020-04-06] MEDS: ENOXAPARIN SODIUM 30 MG/0.3 ML DISP.SYRIN SQ SCH (21:11)
[2020-04-07] MEDS ORDERED: EPINEPHRINE (1:10,000) SYRINGE 1 MG/10 ML DISP.SYRIN IVP ONE (00:14)
[2020-04-07] MEDS ORDERED: SODIUM BICARBONATE SYR 50 MEQ/50 ML DISP.SYRIN IV ONE (00:14)
[2020-04-07] MEDS ORDERED: CALCIUM CHLORIDE 1,000 MG/10 ML DISP.SYRIN IV ONE (00:14)
--- NOTE | 2020-04-07 00:15 | NUR ---
[facility] called dr. cornelio stokes and asked for call back reguarding code blue.
--- NOTE | 2020-04-07 00:16 | NUR ---
MS/RN RADHA OLIVEIRA NOTES: 0000: CODE BLUE STARTED. COMPRESSIONS STARTED. 0001: PT. SUCTIONED WITH A YANKER. 0002: BLOOD SUGAR CHECKED; 104. AMBUBAG APPLIED. RADHA OLIVEIRA TEAM ARRIVED. RT AT BEDSIDE. CODE HOG SLAUGHTERER/ASSET ADMINISTRATOR, WAI AT BEDSIDE. CHARGE NURSE ANTONIO AND CRUDE UNIT OPERATOR FLIP PRESENT. DR. ERYN SIEGEL AT BEDSIDE. 0003: 1ST EPI WAS GIVEN. 0005: PULSE CHECK: ASYSTOLE 0005: PATIENT INTUBATED WITH SIZE #14 0006: CALCIUM CHLORIDE GIVEN. 0007: 3 LINES INSERTED BY ER NURSES (AAYD AND DARRICK) AND ICU NURSE (WAI) 0008: CALCIUM CHLORIDE GIVEN. PULSE CHECK ASYSTOLE. 0009: 2ND EPI GIVEN. SHIFT SUPERINTENDENT CALLED FAMILY. 0011: PULSE CHECK: ASYSTOLE. BREATHING: AGONAL RHYTHM. 0011: 50 MEQ BICARB GIVEN. 0012: 3RD EPI GIVEN. PULSE CHECK: ASYSTOLE. 0013: SHOCKED 200 JOULES. PULSE CHECK: V-FIB 0014: AGONAL RHYTHM. 0015: CODE ENDED. TIME OF PRONOUNCED BY DR. SIEGEL AT 0015.
--- NOTE | 2020-04-07 00:17 | NUR ---
MS/RN NOTES INFORMED WAREHOUSE GUARD DR JAIME MARIN THAT PATIENT AT 0015.
--- NOTE | 2020-04-07 00:30 | NUR ---
MS/RN NOTES: CALLED [facility]. SPOKE WITH APRIL. . PER [facility], PT CAN BE RELEASED TO A HOME.
--- NOTE | 2020-04-07 00:35 | NUR ---
MS/RN NOTES: PT'S FAMILY CONTACTED. CHARGE NURSE SPOKE TO THE SON AND INFORMED THAT PT. . PER PT'S FAMILY, THEY WON'T VISIT TONIGHT AND THEY WILL MAKE ARRANGEMENTS AND CALL IN THE MORNING.
--- NOTE | 2020-04-07 00:50 | NUR ---
MS/RN NOTES: CODE BLUE FORM COMPLETED. REVIEWED BY CHARGE NURSE. POST MORTEM CARE INITIATED. ALL TUBINGS TAKEN OUT. PT KEPT CLEAN AND DRY. TAG PLACED AND SECURITY NOTIFIED TO BRING PT DOWN TO THE [place].
--- NOTE | 2020-04-07 01:23 | NUR ---
MS/RN NOTES: PT. BROUGHT DOWN TO THE [place] BY SECURITY, ASSISTED BY PRIMARY RN.
== END 2020-04-07 00:15 | disposition expired | DRG 441 ==
LOC: ER 18:43 → TELE 21:37 → MED 04-04 08:25
PROVIDERS: ATTEND Nurse Practitioner Acute Care
PROC: 0BH18EZ Insertion of Endotracheal Airway into Trachea, Via Natural or Artificial Opening Endoscopic (ICD-10-PCS; principal; 2020-04-07)
PROC: 5A2204Z Restoration of Cardiac Rhythm, Single (ICD-10-PCS; principal; 2020-04-07)
PROC: 5A12012 Performance of Cardiac Output, Single, Manual (ICD-10-PCS; principal; 2020-04-07)
DX: K72.90 Hepatic failure, unspecified without coma (principal); E43 Unspecified severe protein-calorie malnutrition; I21.A1 Myocardial infarction type 2; N17.0 Acute kidney failure with tubular necrosis; C22.0 Liver cell carcinoma; N39.0 Urinary tract infection, site not specified; E87.1 Hypo-osmolality and hyponatremia; C78.00 Secondary malignant neoplasm of unspecified lung; R64 Cachexia; K76.6 Portal hypertension; D68.9 Coagulation defect, unspecified; C78.6 Secondary malignant neoplasm of retroperitoneum and peritoneum; R62.7 Adult failure to thrive; D75.1 Secondary polycythemia; E86.0 Dehydration; K74.60 Unspecified cirrhosis of liver; D69.59 Other secondary thrombocytopenia; E03.9 Hypothyroidism, unspecified; I25.10 Atherosclerotic heart disease of native coronary artery without angina pectoris; D75.89 Other specified diseases of blood and blood-forming organs; E80.6 Other disorders of bilirubin metabolism; E87.5 Hyperkalemia; Z68.25 Body mass index [BMI] 25.0-25.9, adult; E83.52 Hypercalcemia; I10 Essential (primary) hypertension
CPT/HCPCS: 36415; 70450-TC; 71045-TC; 76770-TC; 80048-TC; 80053-TC; 80061-TC; 80076-TC; 81000-TC; 82105; 82140-TC; 82378; 82550-TC; 82570-TC; 82962-TC; 83690-TC; 83735-TC; 83880; 83970; 84100-TC; 84155; 84155-TC; 84165; 84300-TC; 84443-TC; 84484-TC; 85025-TC; 85396; 85730-TC; 86301; 87040-TC; 87081-TC; 87086-TC; 93307-TC; 97530-TC; A4216; C9803-CS; G0378; J0171; J0696; J1650; J1940; J2354; J2405; J3490; J7030; J7040; J7060; P9047